=== PATIENT | male | born 1990 ===

== ENCOUNTER 2019-05-14 09:01 | Outpatient (CLI) | payer OTHER ==
[~2019-05-14] VITALS: Ht 177.8 cm; Wt 83.9 kg
[2019-05-14] MEDS ORDERED: CLARITIN10 MG PO (09:48)
[2019-05-14] MEDS ORDERED: FLONASE16 GM NASAL (09:49)
== END 2019-05-14 13:39 | disposition home or self-care (01) ==
LOC: OFIC 805 09:01
DX: J35.1 Hypertrophy of tonsils (principal); R19.6 Halitosis; J31.0 Chronic rhinitis; J34.2 Deviated nasal septum; R05 Cough